=== PATIENT | female | born 1995 | race African-American/Black ===

== ENCOUNTER 2016-12-04 23:30 | Emergency (ER) | payer SELFPAY ==
[~2016-12-04] VITALS: Ht 160 cm; Wt 86.2 kg
[2016-12-05] MEDS ORDERED: IV NORMAL SALINE 1000ML BAG 1,000 ML IV SCH (01:30)
[2016-12-05] MEDS ORDERED: ONDANSETRON PF 4 MG/2 ML VIAL. IV ONE (01:30)
[2016-12-05 01:49] LABS: CALCIUM 9.1 mg/dL (8.5-10.1); CREATININE 0.8 mg/dL (0.6-1.0); GFR 110.7; POTASSIUM 3.7 mmol/L (3.5-5.1)
[2016-12-05 01:55] LABS: DIRECT BILIRUBIN 0.1 mg/dL (0.0-0.2); TOTAL BILIRUBIN 0.4 mg/dL (0.2-1.0); TOTAL PROTEIN 8.2 g/dL (6.4-8.2)
[2016-12-05] MEDS ORDERED: ONDA4TAB10 SL (01:55)
--- NOTE | 2016-12-05 01:55 | PHYS DOC ---
Past Medical History Past Medical History: No Pertinent History Past Surgical History: No Surgical History Alcohol Use: None Drug Use: Marijuana Adult General Chief Complaint Chief Complaint: NAUSEA/VOMITING/DIARRHA HPI HPI Patient is a 21 year old female who presents with multiple episodes of nonbloody nonbilious emesis and a few episodes of nonbloody diarrhea since eating at [employer] this evening. Her friend also ate the same food and has the same symptoms. She has crampy, diffuse abdominal pain. She denies dysuria, hematuria, back pain, chest pain, cough. Review of Systems Review of Systems Constitutional: Denies fever or chills [] Eyes: Denies change in visual acuity, redness, or eye pain [] HENT: Denies nasal congestion or sore throat [] Respiratory: Denies cough or shortness of breath [] Cardiovascular: No additional information not addressed in HPI [] GI: Denies bloody stools or bloody emesis [] : Denies dysuria or hematuria [] Musculoskeletal: Denies back pain or joint pain [] Integument: Denies rash or skin lesions [] Neurologic: Denies headache, focal weakness or sensory changes [] Endocrine: Denies polyuria or polydipsia [] Current Medications Current Medications Current Medications Medications (Trade) Dose Ordered Sig/Joe Start Time Stop Time Status Last Admin Dose Admin Ondansetron HCl (Zofran) 4 mg 1X ONCE 12/05/16 01:30 12/05/16 01:31 DC 12/05/16 01:41 4 MG Sodium Chloride (Iv Sodium Chloride 0.9% 1000ml Bag) 1,000 ml @ 1,000 mls/hr Q1H 12/05/16 01:30 12/05/16 02:29 DC 12/05/16 01:30 1,000 MLS/HR Allergies Allergies Allergies Coded Allergies Type Severity Reaction Last Updated Verified No Known Drug Allergies 11/21/14 No Physical Exam Physical Exam Constitutional: Well developed, well nourished, no acute distress, non-toxic appearance. [] HENT: Normocephalic, atraumatic, bilateral external ears normal, oropharynx moist, nose normal. [] Eyes: PERRLA, EOMI. [] Neck: Normal range of motion, supple. [] Cardiovascular:Heart rate regular rhythm [] Lungs & Thorax: Bilateral breath sounds clear to auscultation [] Abdomen: Bowel sounds normal, soft, no tenderness. [] Skin: Warm, dry, no erythema, no rash. [] Back: No tenderness, no CVA tenderness. [] Extremities: ROM intact, no edema. [] Neurologic: Alert and oriented X 3, normal motor function, normal sensory function, no focal deficits noted. [] Psychologic: Affect normal, judgement normal, mood normal. [] Current Patient Data Vital Signs Vital Signs Date Time Temp Pulse Resp B/P Pulse Ox O2 Delivery O2 Flow Rate FiO2 12/05/16 03:04 86 16 116/55 100 Room Air 12/05/16 01:08 98.1 98.1 Lab Values Laboratory Tests Test 12/05/16 01:28 POC Urine HCG, Qualitative hcg negative (Negative) Sodium Level 141mmol/L (136-145) Potassium Level 3.7mmol/L (3.5-5.1) Chloride Level 106mmol/L (98-107) Carbon Dioxide Level 25mmol/L (21-32) Anion Gap 10 (6-14) Blood Urea Nitrogen 7mg/dL (7-20) Creatinine 0.8mg/dL (0.6-1.0) Estimated GFR (Cockcroft-Gault) 110.7 Glucose Level 98mg/dL (70-99) Calcium Level 9.1mg/dL (8.5-10.1) Total Bilirubin 0.4mg/dL (0.2-1.0) Direct Bilirubin 0.1mg/dL (0.0-0.2) Aspartate Amino Transferase (AST) 13U/L (15-37) L Alanine Aminotransferase (ALT) 20U/L (14-59) Alkaline Phosphatase 80U/L (46-116) Total Protein 8.2g/dL (6.4-8.2) Albumin 4.0g/dL (3.4-5.0) Lipase 97U/L (73-393) Laboratory Tests 12/05/16 01:28 Course & Med Decision Making Course & Med Decision Making Pertinent Labs and Imaging studies reviewed. (See chart for details) Workup is unremarkable. She is feeling better after medications. She is tolerating oral intake and would like to go home. Return precautions given. She understands and agrees with plan. Carmella Disclaimer Carmella Disclaimer This electronic medical record was generated, in whole or in part, using a voice recognition dictation system. Departure Departure Impression: Primary Impression: Nausea vomiting and diarrhea Disposition: HOME, SELF-CARE Condition: STABLE Referrals: NO PCP (PCP) Patient Instructions: Nausea and Vomiting, [id number] Additional Instructions: Take Zofran as needed for nausea. Follow-up with your primary care doctor within one week. Return for any concerns. Scripts Ondansetron (Zofran Odt)4 Mg Tab.rapdis1 Tab SL Q8HRS #10 TAB Prov:Kristin CURRAN MD 12/05/16 Kristin CURRAN MD Dec 05, 2016 01:55
[2016-12-05 03:04] VITALS: BP 116/55
== END 2016-12-05 03:10 | disposition home or self-care (01) ==
LOC: ER 23:30
DX: R11.2 Nausea with vomiting, unspecified (principal); R19.7 Diarrhea, unspecified; F12.10 Cannabis abuse, uncomplicated
CPT/HCPCS: 36415; 80048; 80076; 81025; 83690; 96361; 96374; 99285; J2405; J7030

== ENCOUNTER 2018-07-31 00:56 | Emergency (ER) | payer SELFPAY ==
[~2018-07-31] VITALS: Ht 172.7 cm; Wt 86.2 kg
[~2018-07-31 00:56] MED LIST: ONDA4TAB10 SL
--- NOTE | 2018-07-31 01:23 | PHYS DOC ---
Past Medical History Past Medical History: No Pertinent History Past Surgical History: No Surgical History Alcohol Use: None Drug Use: Marijuana Adult General Chief Complaint Chief Complaint: ABDOMINAL PAIN HPI HPI Patient is a 22-year-old female presents to the emergency department for evaluation. She states that for the past week or so, she has had some waxing and waning sharp right upper quadrant abdominal pain with some radiation towards her right shoulder area. The pain seems to be worsened with deep breathing, as well as certain movements. She has not noticed any association to the pain with eating. She denies any significant shortness of breath, dizziness or lightheadedness. She does not use any contraceptives and denies any recent immobilization or prolonged travel. She has had some nausea but no vomiting or diarrhea. She denies any lower abdominal pain, vaginal bleeding or discharge. Her LMP was 07/14/18. She has not had any fevers or chills. Other than the stated above, there are no alleviating or exacerbating factors to her symptoms. There is no known family history of venous thromboembolic disease. Review of Systems Review of Systems Constitutional: Denies fever or chills [] Eyes: Denies change in visual acuity, redness, or eye pain [] HENT: Denies nasal congestion or sore throat [] Respiratory: Denies cough or shortness of breath [] Cardiovascular: The patient denies any shortness of breath, chest pain, palpitations, or orthopnea[] GI: Denies vomiting, bloody stools or diarrhea [] : Denies dysuria or hematuria [] Musculoskeletal: Denies back pain or joint pain [] Integument: Denies rash or skin lesions [] Neurologic: Denies headache, focal weakness or sensory changes [] Endocrine: Denies polyuria or polydipsia [] All other systems were reviewed and found to be within normal limits, except as documented in this note. Current Medications Current Medications Current Medications Medications (Trade) Dose Ordered Sig/Joe Start Time Stop Time Status Last Admin Dose Admin Info (CONTRAST GIVEN -- Rx MONITORING) 1 each PRN DAILY PRN 07/31/18 02:30 08/02/18 02:29 Iohexol (Omnipaque 300 Mg/ml) 75 ml 1X ONCE 07/31/18 02:30 07/31/18 02:31 DC 07/31/18 02:42 75 ML Allergies Allergies Allergies Coded Allergies Type Severity Reaction Last Updated Verified No Known Drug Allergies 11/21/14 No Physical Exam Physical Exam PHYSICAL EXAM: CONSTITUTIONAL: Well developed, well nourished HEAD: normocephalic, atraumatic EENT: PERRL, EOMI. Conjunctivae normal color, sclerae non-icteric; moist mucous membranes. NECK: Supple, non-tender; no meningismus. LUNGS: Lungs CTA, breathing even and unlabored. Normal air movement. HEART: Regular rate and rhythm, no murmur CHEST: No deformity; there is some mild, inconsistent right anterior costal margin pain, which does somewhat reproduce the patient's discomfort. ABDOMEN: The abdomen is soft, and non-tender, no masses or bruits. The right upper quadrant of the abdomen is not particularly tender, Wilson sign is absent. EXTREM: Normal ROM; no deformity, no calf tenderness. Normal pulses palpable in all extremities. There is no pedal edema. SKIN: No rash; no diaphoresis NEURO: Alert; normal speech and cognition; CN's grossly intact; strength grossly intact without focal deficit. BACK: No CVA TTP. Current Patient Data Vital Signs Vital Signs Date Time Temp Pulse Resp B/P (MAP) Pulse Ox O2 Delivery O2 Flow Rate FiO2 07/31/18 06:10 72 18 135/77 (96) 97 Room Air 07/31/18 01:19 98.0 98.0 Lab Values Laboratory Tests Test 07/31/18 01:13 White Blood Count 7.6 x10^3/uL (4.0-11.0) Red Blood Count 4.35 x10^6/uL (3.50-5.40) Hemoglobin 12.3 g/dL (12.0-15.5) Hematocrit 35.1 % (36.0-47.0) L Mean Corpuscular Volume 81 fL (79-100) Mean Corpuscular Hemoglobin 28 pg (25-35) Mean Corpuscular Hemoglobin Concent 35 g/dL (31-37) Red Cell Distribution Width 13.5 % (11.5-14.5) Platelet Count 251 x10^3/uL (140-400) Neutrophils (%) (Auto) 65 % (31-73) Lymphocytes (%) (Auto) 23 % (24-48) L Monocytes (%) (Auto) 11 % (0-9) H Eosinophils (%) (Auto) 1 % (0-3) Basophils (%) (Auto) 1 % (0-3) Neutrophils # (Auto) 4.9 x10^3uL (1.8-7.7) Lymphocytes # (Auto) 1.7 x10^3/uL (1.0-4.8) Monocytes # (Auto) 0.9 x10^3/uL (0.0-1.1) Eosinophils # (Auto) 0.1 x10^3/uL (0.0-0.7) Basophils # (Auto) 0.0 x10^3/uL (0.0-0.2) D-Dimer (Hermila) 1.41 ug/mlFEU (0.00-0.50) H Urine Collection Type Unknown Urine Color Yellow Urine Clarity Clear Urine pH 5.5 Urine Specific [place] 1.025 Urine Protein Negative mg/dL (NEG-TRACE) Urine Glucose (UA) Negative mg/dL (NEG) Urine Ketones (Stick) 40 mg/dL (NEG) Urine Blood Negative (NEG) Urine Nitrite Negative (NEG) Urine Bilirubin Negative (NEG) Urine Urobilinogen Dipstick 1.0 mg/dL (0.2 mg/dL) Urine Leukocyte Esterase Small (NEG) Urine RBC 0 /HPF (0-2) Urine WBC 5-10 /HPF (0-4) Urine Squamous Epithelial Cells Mod /LPF Urine Bacteria Moderate /HPF (0-FEW) Urine Mucus Mod /LPF Sodium Level 142 mmol/L (136-145) Potassium Level 3.2 mmol/L (3.5-5.1) L Chloride Level 103 mmol/L (98-107) Carbon Dioxide Level 27 mmol/L (21-32) Anion Gap 12 (6-14) Blood Urea Nitrogen 8 mg/dL (7-20) Creatinine 0.7 mg/dL (0.6-1.0) Estimated GFR (Cockcroft-Gault) 127.8 BUN/Creatinine Ratio 11 (6-20) Glucose Level 87 mg/dL (70-99) Calcium Level 9.6 mg/dL (8.5-10.1) Total Bilirubin 0.4 mg/dL (0.2-1.0) Aspartate Amino Transferase (AST) 12 U/L (15-37) L Alanine Aminotransferase (ALT) 16 U/L (14-59) Alkaline Phosphatase 80 U/L (46-116) Total Protein 8.5 g/dL (6.4-8.2) H Albumin 3.6 g/dL (3.4-5.0) Albumin/Globulin Ratio 0.7 (1.0-1.7) L Lipase 96 U/L (73-393) Serum Test, Qualitative Negative (NEG) Laboratory Tests 07/31/18 01:13 Laboratory Tests 07/31/18 01:13 EKG EKG [Normal sinus rhythm at a rate of 96 bpm, normal axis, normal intervals. There are no acute ischemic ST/T changes present.] Radiology/Procedures Radiology/Procedures [PROCEDURE: CT ANGIOGRAPHY CHEST INDICATION: RIGHT SIDED CHEST PAIN; OMNI 300, 75ML COMPARISON: None. TECHNIQUE: Axial CT images obtained through the chest. Intravenous contrast utilized. Angiogram 3D images processed per protocol. One or more of the following individualized dose reduction techniques were utilized for this examination: 1. Automated exposure control; 2. Adjustment of the mA and/or kV according to patient size; 3. Use of iterative reconstruction technique. FINDINGS: No evidence of pneumothorax. Mild dependent airspace opacities, right greater than left. Fullness of the soft tissues surrounding the abdominal aorta partially visualized upper abdomen as seen on CT of abdomen. Soft tissue density anterior mediastinum. Most commonly from residual thymus in a patient of this age. The ascending thoracic aorta is obscured by motion. No evidence of aneurysm of descending thoracic aorta. No embolus in main, right main or left main pulmonary artery. motion obscures the peripheral pulmonary arteries. IMPRESSION: No embolus in the main pulmonary arteries. Motion obscures the peripheral vessels. Hypoexpanded exam of the lungs with mild groundglass opacities at right greater than left lung base. Given the location the most likely causes atelectasis unless there is high clinical concern for infiltrate. Within the partially visualized upper abdomen there is soft tissue density seen surrounding the retroperitoneal structures. This was also seen on CT abdomen from the same day and although a portion of this could be secondary to some loops of bowel within the region this is more than typically seen and causes such as lymphadenopathy and/or retroperitoneal fibrosis are in the differential for this finding. A nonemergent CT the abdomen and pelvis with intravenous and oral contrast may be helpful to further assess this finding.] PROCEDURE: CT ABDOMEN PELVIS WO CONTRAST INDICATION: RT. FLANK PAIN AND HYDRONEPHROSIS COMPARISON: None. TECHNIQUE: Axial CT images obtained through the abdomen and pelvis without contrast. Limited assessment of solid organ structures and vasculature secondary to lack of intravenous contrast. One or more of the following individualized dose reduction techniques were utilized for this examination: 1. Automated exposure control; 2. Adjustment of the mA and/or kV according to patient size; 3. Use of iterative reconstruction technique. FINDINGS: Mild dependent opacities at lung bases. The abdominal aorta is partially obscured secondary to soft tissue density structure seen adjacent. No intrahepatic bile duct dilation. Spleen appears mildly prominent in size. The pancreas appears prominent in size. Not well evaluated given lack of intravenous contrast. No left-sided hydronephrosis. Urinary bladder is partially distended. No right-sided hydronephrosis. Low-density lesion suspected the right adnexa measuring up to 33 mm. Distal colonic wall appears prominent in thickness but not very distended. Mild haziness to the fat within the pelvis anteriorly bilaterally. The appendix is partially seen with air in the lumen. The tip of the appendix is not well seen secondary to multiple loops of bowel within the region there is some adjacent haziness but there is haziness also seen on the left side of the pelvis. Air is seen within the lumen. IMPRESSION: 1. The sigmoid colon is not very distended but the wall does appear mildly prominent. Could be from a region of contraction but would correlate with symptoms in the region to ensure that this is not from a pathologic process such as mild colitis. 2. The patient's appendix is partially seen with air and debris within the lumen with the tip obscured secondary to multiple collapsed loops of bowel within the region. There is some haziness in the right lower quadrant but there is also haziness seen in the left lower quadrant to a similar degree therefore this mild haziness is likely not secondary to appendiceal inflammation. 3. Suspected cystic lesion in the right adnexa but ultrasound could better evaluate if more accurate characterization is needed. 4. Given the noncontrast nature of this exam evaluation of the solid organ structures and vasculature is limited. There is some apparent soft tissue density seen within the retroperitoneum adjacent to the inferior vena cava and aorta. Given the presence of this finding causes such as lymphadenopathy or retroperitoneal fibrosis is not excluded on this examination but it is possible that some of this density within the region is secondary to unopacified loops of bowel as well as enlarged pancreas. PROCEDURE: ABDOMEN LTD INDICATION : ruq pain x 1 wk COMPARISON: None TECHNIQUE: Multiple ultrasound images obtained through the abdomen in grayscale and color. FINDINGS: Liver: Echotexture within normal limits in visualized portions of liver. Gallbladder: Partially contracted without definite stones. IVC: Partially distended at level of liver. Common Bile Duct: Not dilated. Pancreas: Poorly seen secondary to overlying bowel gas Right Kidney: Mild hydronephrosis. IMPRESSION: 1. Mild right-sided hydronephrosis. Course & Med Decision Making Course & Med Decision Making Pertinent Labs and Imaging studies reviewed. (See chart for details) 6:00 AM: The patient's condition remained stable. Her heart rate is about 85, and oxygen saturation is in the mid to upper 90s-100. I do not have an alternate exhalation of the patient's symptoms are elevated d-dimer other than pulmonary embolism. Unfortunately, her CT scan was nondiagnostic. She does warrant definitively rule out a pulmonary embolism before discharge home and a VQ scan will be ordered. Care will be turned over to Dr. Kearns at shift change, pending VQ scan and final disposition. The patient is otherwise stable to be discharged of her VQ scan is negative. I did discuss the multiple incidental findings on the patient's CT of her abdomen in the for further outpatient follow-up. The patient will be given resources to help obtain follow- up primary care for further outpatient imaging of her abdomen.[] signout received from yulissa ordaz to f/u on v/q scan Impression: 1. There are no definite mismatched defects identified that are worse on the perfusion when compared to ventilation. There is however matched ventilation and perfusion defects within the bilateral lower lungs and when correlating with the chest CT there is some mild groundglass opacities within the region. Given that there is some minimal opacity in the bilateral lungs this is technically a triple matched defect but suspect that this finding is secondary to atelectasis in the region rather than a well-defined pulmonic opacity. This places the examination on the border between low and intermediate probability. Electronically signed by: Shiv Blum MD (07/31/2018 7:33 AM) [facility] given the patient's clinical history , i reevaluated her, she has been coughing , she has reproducible chest wall pain, she is not tachycardic or hypoxic and her ct pe protocol showed no main vessel pe. i think the risk of further testing for pe outweighs any benefit at this tiem. i think her risk of pe is extremtly low and given the likely low probability study as noted above, i feel she is safe to go home. given her history of cough with groundglass opacities seen on ct scan, i will give some doxycycline, and return precautions were reviewed. Dragon Disclaimer Dragon Disclaimer This electronic medical record was generated, in whole or in part, using a voice recognition dictation system. Departure Departure Impression: Primary Impression: Pleuritic chest pain Disposition: HOME, SELF-CARE Condition: STABLE Referrals: NO PCP (PCP) Additional Instructions: There were some incidental findings on the CAT scan of your abdomen today that do warrant further outpatient follow-up. Please use the provided resources to arrange follow-up care within the next 1-2 weeks with a primary care provider who can undertake further evaluation of these findings, including a repeat CAT scan of her abdomen with IV and oral contrast. Scripts Doxycycline Hyclate (DOXYCYCLINE HYCLATE) 100 Mg Tablet 1 TAB PO BID, #14 TAB Prov: LEO KEARNS MD 07/31/18 FOL DIAMOND MD Jul 31, 2018 01:23 LEO KEARNS MD Jul 31, 2018 07:55
[2018-07-31 01:30] LABS: BASO % 1 % (0-3); BILIRUBIN,URINE NEGATIVE (NEG); CLARITY,URINE CLEAR; COLOR,URINE YELLOW; EOS # 0.1 x10^3/uL (0.0-0.7); EOS % 1 % (0-3); HEMATOCRIT 35.1 % (36.0-47.0); HEMOGLOBIN 12.3 g/dL (12.0-15.5); LYMPH # 1.7 x10^3/uL (1.0-4.8); LYMPH % 23 % (24-48); MEAN CORPUSCULAR HEMOGLOBIN 28 pg (25-35); MEAN CORPUSCULAR HGB CONC 35 g/dL (31-37); MEAN CORPUSCULAR VOLUME 81 fL (79-100); MONO # 0.9 x10^3/uL (0.0-1.1); MONO % 11 % (0-9); NEUT # 4.9 x10^3uL (1.8-7.7); NEUT % 65 % (31-73); NITRITE,URINE NEGATIVE (NEG); PH,URINE 5.5; PLATELET COUNT 251 x10^3/uL (140-400); PROTEIN,URINE NEGATIVE (NEG-TRACE); RED BLOOD COUNT 4.35 x10^6/uL (3.50-5.40); RED CELL DISTRIBUTION WIDTH 13.5 % (11.5-14.5); WHITE BLOOD COUNT 7.6 x10^3/uL (4.0-11.0)
[2018-07-31 02:01] LABS: CALCIUM 9.6 mg/dL (8.5-10.1); CREATININE 0.7 mg/dL (0.6-1.0); GFR 127.8; POTASSIUM 3.2 mmol/L (3.5-5.1)
[2018-07-31 02:04] LABS: BACTERIA,URINE MODERATE /HPF (0-FEW); PREG TEST PT QUAL NEGATIVE (NEG); RBC,URINE 0 /HPF (0-2); SQUAMOUS EPITHELIAL CELL,UR MOD /LPF
--- NOTE | 2018-07-31 02:05 | RAD ---
INDICATION : ruq pain x 1 wk COMPARISON: None TECHNIQUE: Multiple ultrasound images obtained through the abdomen in grayscale and color. FINDINGS: Liver: Echotexture within normal limits in visualized portions of liver. Gallbladder: Partially contracted without definite stones. IVC: Partially distended at level of liver. Common Bile Duct: Not dilated. Pancreas: Poorly seen secondary to overlying bowel gas Right Kidney: Mild hydronephrosis. IMPRESSION: 1. Mild right-sided hydronephrosis. Electronically signed by: Shiv Blum MD (07/31/2018 2:01 AM) [facility]
[2018-07-31 02:07] LABS: ALBUMIN 3.6 g/dL (3.4-5.0); ALBUMIN/GLOBULIN RATIO 0.7 (1.0-1.7); TOTAL BILIRUBIN 0.4 mg/dL (0.2-1.0); TOTAL PROTEIN 8.5 g/dL (6.4-8.2)
[2018-07-31] MEDS ORDERED: CONTRAST GIVEN. MC PRN (02:30)
[2018-07-31] MEDS ORDERED: IOHEXOL 300 MG/ML 100ML VIAL. IV ONE (02:30)
--- NOTE | 2018-07-31 03:40 | RAD ---
INDICATION: RT. FLANK PAIN AND HYDRONEPHROSIS COMPARISON: None. TECHNIQUE: Axial CT images obtained through the abdomen and pelvis without contrast. Limited assessment of solid organ structures and vasculature secondary to lack of intravenous contrast. One or more of the following individualized dose reduction techniques were utilized for this examination: 1. Automated exposure control; 2. Adjustment of the mA and/or kV according to patient size; 3. Use of iterative reconstruction technique. FINDINGS: Mild dependent opacities at lung bases. The abdominal aorta is partially obscured secondary to soft tissue density structure seen adjacent. No intrahepatic bile duct dilation. Spleen appears mildly prominent in size. The pancreas appears prominent in size. Not well evaluated given lack of intravenous contrast. No left-sided hydronephrosis. Urinary bladder is partially distended. No right-sided hydronephrosis. Low-density lesion suspected the right adnexa measuring up to 33 mm. Distal colonic wall appears prominent in thickness but not very distended. Mild haziness to the fat within the pelvis anteriorly bilaterally. The appendix is partially seen with air in the lumen. The tip of the appendix is not well seen secondary to multiple loops of bowel within the region there is some adjacent haziness but there is haziness also seen on the left side of the pelvis. Air is seen within the lumen. IMPRESSION: 1. The sigmoid colon is not very distended but the wall does appear mildly prominent. Could be from a region of contraction but would correlate with symptoms in the region to ensure that this is not from a pathologic process such as mild colitis. 2. The patient's appendix is partially seen with air and debris within the lumen with the tip obscured secondary to multiple collapsed loops of bowel within the region. There is some haziness in the right lower quadrant but there is also haziness seen in the left lower quadrant to a similar degree therefore this mild haziness is likely not secondary to appendiceal inflammation. 3. Suspected cystic lesion in the right adnexa but ultrasound could better evaluate if more accurate characterization is needed. 4. Given the noncontrast nature of this exam evaluation of the solid organ structures and vasculature is limited. There is some apparent soft tissue density seen within the retroperitoneum adjacent to the inferior vena cava and aorta. Given the presence of this finding causes such as lymphadenopathy or retroperitoneal fibrosis is not excluded on this examination but it is possible that some of this density within the region is secondary to unopacified loops of bowel as well as enlarged pancreas. Electronically signed by: Shiv Blum MD (07/31/2018 3:35 AM) [facility]
--- NOTE | 2018-07-31 04:03 | RAD ---
INDICATION: RIGHT SIDED CHEST PAIN; OMNI 300, 75ML COMPARISON: None. TECHNIQUE: Axial CT images obtained through the chest. Intravenous contrast utilized. Angiogram 3D images processed per protocol. One or more of the following individualized dose reduction techniques were utilized for this examination: 1. Automated exposure control; 2. Adjustment of the mA and/or kV according to patient size; 3. Use of iterative reconstruction technique. FINDINGS: No evidence of pneumothorax. Mild dependent airspace opacities, right greater than left. Fullness of the soft tissues surrounding the abdominal aorta partially visualized upper abdomen as seen on CT of abdomen. Soft tissue density anterior mediastinum. Most commonly from residual thymus in a patient of this age. The ascending thoracic aorta is obscured by motion. No evidence of aneurysm of descending thoracic aorta. No embolus in main, right main or left main pulmonary artery. motion obscures the peripheral pulmonary arteries. IMPRESSION: No embolus in the main pulmonary arteries. Motion obscures the peripheral vessels. Hypoexpanded exam of the lungs with mild groundglass opacities at right greater than left lung base. Given the location the most likely causes atelectasis unless there is high clinical concern for infiltrate. Within the partially visualized upper abdomen there is soft tissue density seen surrounding the retroperitoneal structures. This was also seen on CT abdomen from the same day and although a portion of this could be secondary to some loops of bowel within the region this is more than typically seen and causes such as lymphadenopathy and/or retroperitoneal fibrosis are in the differential for this finding. A nonemergent CT the abdomen and pelvis with intravenous and oral contrast may be helpful to further assess this finding. Electronically signed by: Shiv Blum MD (07/31/2018 3:59 AM) [facility]
[2018-07-31 06:10] VITALS: BP 135/77
--- NOTE | 2018-07-31 06:29 | EKG ---
[facility] [address] [place] [address] Test Date: 2018-07-31 Test Time: 01:24:19 Pat Name: SEJAL OCHOA Department: Room: Gender: F [employer]: MELIDA : 1995 Requested By: FLO DIAMOND Order Number: [id number] Reading MD: Cyrus Encinas MD Measurements Intervals [place] Rate: 96 P: 41 MI: 134 QRS: 27 QRSD: 80 T: 23 QT: 348 QTc: 441 Interpretive Statements SINUS RHYTHM Electronically Signed On 08-04-2018 10:54:47 CDT by Cyrus Encinas MD
--- NOTE | 2018-07-31 07:37 | RAD ---
Indication: cp x 1 week Technique: Static images are obtained of both lungs following inhalation of 20 mCi of xenon-133 and again following IV administration of 5 mCi of 99 M technetium MAA. Comparison: Chest CT from earlier same day Findings: No definite mismatched defects that are worse on the perfusion when compared to the ventilation images. There are some lower lobe defects seen bilaterally on the perfusion images with corresponding ventilation defect. Impression: 1. There are no definite mismatched defects identified that are worse on the perfusion when compared to ventilation. There is however matched ventilation and perfusion defects within the bilateral lower lungs and when correlating with the chest CT there is some mild groundglass opacities within the region. Given that there is some minimal opacity in the bilateral lungs this is technically a triple matched defect but suspect that this finding is secondary to atelectasis in the region rather than a well-defined pulmonic opacity. This places the examination on the border between low and intermediate probability. Electronically signed by: Shiv Blum MD (07/31/2018 7:33 AM) [facility]
[2018-07-31] MEDS ORDERED: DOXY100T PO (07:49)
== END 2018-07-31 08:03 | disposition home or self-care (01) ==
LOC: ER 00:56
DX: R07.81 Pleurodynia (principal); R10.11 Right upper quadrant pain
CPT/HCPCS: 36415; 71275; 74176; 76705; 78582; 80053; 81001; 83690; 84703; 85025; 85379; 87086; 93005; 99285; A9540; A9558; Q9967; 96374